=== PATIENT | female | born 1985 | race Caucasian/White ===

== ENCOUNTER → 2019-10-22 16:41 | Outpatient (CLI) | payer SELFPAY ==
[2019-10-27 08:23] LABS: HPV Reflexed? NOT INDICATED
== END ==
PROVIDERS: Visit Provider Obstetrics & Gynecology
DX: Z12.4 Encounter for screening for malignant neoplasm of cervix (principal)
CPT/HCPCS: 88175; G0145

== ENCOUNTER → 2020-08-27 13:37 | Outpatient (CLI) | payer SELFPAY ==
[2020-08-30 20:07] LABS: Chlamydia By Nucleic Acid AMP Negative (Negative)
[2020-08-30 20:46] LABS: Gonococcus By Nucleic Acid AMP Negative (Negative)
== END ==
PROVIDERS: Visit Provider Obstetrics & Gynecology
DX: Z11.3 Encounter for screening for infections with a predominantly sexual mode of transmission (principal)
CPT/HCPCS: 87491; 87591

== ENCOUNTER 2020-09-09 19:02 | Emergency (ER) | payer SELFPAY ==
[2020-09-09 19:03] VITALS: BP 140/81; PULSE 75; RESP 15; TEMP 36.6; O2SAT 100; BMI 24.7
--- NOTE | 2020-09-09 19:28 | RAD_ITS ---
EXAM: XR LEFT ANKLE COMPLETE, 3 OR MORE VIEWS : 1987 CLINICAL INDICATION: Injury/Pain TECHNIQUE: Frontal, lateral and oblique views of the left ankle. This report was created using [employer] report generation technology. COMPARISON: None. FINDINGS: BONES/JOINTS: Unremarkable. No acute fracture. No subluxation. Normal alignment. Preservation of the joint space. No sclerotic or destructive changes observed. SOFT TISSUES: Unremarkable. No soft tissue swelling or gas. No radiopaque foreign body. RAD/Ankle min 3 Views IMPRESSION: Negative left ankle x-rays. at 2003 Reported and signed by: Cody Myers MD Electronically Signed: Cody Myers MD at 20:02 EDT Tel , Service support ,
--- NOTE | 2020-09-09 21:08 | ED.VIS.LOWEX ---
HPI History of Present Illness HPI Narrative: Patient presents with left ankle injury that occurred tonight. Patient states she inverted her left ankle and fell. Patient denies any head injury or loss of consciousness. Patient complains of pain over the lateral aspect of the left ankle. Patient states the pain is aching. Patient states pain is worse with any movement or weightbearing. Patient states the pain is better with rest. Patient denies any radiation of the pain. Patient denies any paresthesias or weakness. Patient is approximately 10 weeks . Patient denies any bleeding or cramping. Patient denies any discharge. Patient denies any other symptoms. Chief Complaint: Lower Extremity Injury Informant: patient Occured/Mechanism Mechanism/Context: Yes fall Onset/Context/Timing Onset: Today Context: Sudden Onset Timing: Continuous Quality of Pain: Aching Location: Left ankle Worsened by: Movement, weightbearing Relieved by: Rest Associated Symptoms Associated Symptoms: Negative for Parasthesia, Weakness and Loss of Funtion PFSH PFSH no medical history Allergy/AdvReac Type Severity Reaction Status Date / Time No Known Allergies Allergy Verified 09/09/20 19:02 no surgical history Social History Smoking Status: Never smoker ROS ROS ED Constitutional Constitutional ED: Denies chills or fever(s) Eyes Eyes: Denies blurry vision or change in vision ENT ENT ED: Denies rhinorrhea or sore throat Cardiovascular Cardiovascular: Denies chest pain or palpitations Respiratory/Chest Respiratory/Chest: Denies cough or dyspnea Gastrointestinal Gastrointestinal: Denies nausea or vomiting Genitourinary Genitourinary ED: Denies dysuria or hematuria Musculoskeletal Musculoskeletal: Denies back pain or neck pain Integumentary Denies abscess or rash Neurologic Neurologic: Denies headache(s) or weakness Allergic/Immunologic Allergic/Immunologic ED: Denies mouth swelling or urticaria EXAM Physical Exam Const Vital Signs: 09/09/20 19:03 Temperature 98 F Temperature Source Temporal Pulse Rate 75 Respiratory Rate 15 Blood Pressure 140/81 H Blood Pressure Mean 100 Pulse Ox 100 Oxygen Delivery Method Room Air Positive well nourished and well developed General Appearance ED: well developed HEENT Reports moist mucous membranes Neck full ROM Extremity Extremity Narrative: There is tenderness and mild edema over the lateral aspect of the left ankle. There is some mild tenderness over the lateral malleolus. There is no ecchymosis. There is no deformity noted. There is no tenderness over the proximal fibula. There is no tenderness over the fifth metatarsal. Pedal pulses are equal bilaterally. Capillary refill was less than 2 seconds in all digits. Sensation was intact to light touch in all digits. Neuro oriented x3, CN's II-XII intact bilaterally, moves all extremities and no sensory deficits noted Sensorium / Orientation: alert Psych mental status grossly normal MDM MDM MDM Narrative Medical decision making narrative: X-rays of the left ankle were obtained. There are 3 views. On my interpretation, there is no acute fracture. There is no dislocation. There is no soft tissue swelling. Radiologist also interpreted the x-rays and agrees. Patient was given an Aircast. Patient was instructed to ice and elevate the left ankle. Patient was instructed to take Tylenol as needed for pain. Patient was instructed to follow-up with her primary care physician in 5 to 7 days. Patient understood and was agreeable with the plan. All questions were answered. Radiography Diagnostic Testing: Radiology Impression Ankle X-Ray 09/09/20 19:28 IMPRESSION: Negative left ankle x-rays. at 2003 Reported and signed by: Cody Myers MD Electronically Signed: Cody Myers MD at 20:02 EDT Tel , Service support , Discharge Plan Triage Chief Complaint: Lower Extremity Injury ED Provider: Deshawn Flores Dx/Rx/DC Orders Clinical Impression: Left ankle sprain Instructions: ED Ankle Sprain (Adult) Primary Care Provider: Arline Hudson Referrals: Arline Hudson MD [Primary Care Provider] - 5-7 Days Disposition Disposition: Home, Self Care Discharge Date/Time: 09/09/20 21:39
== END 2020-09-09 21:39 | disposition home or self-care (01) ==
PROVIDERS: Emergency Provider Emergency Medicine; PCP Family Medicine
DX: O9A.211 Injury, poisoning and certain other consequences of external causes complicating pregnancy, first trimester (principal); S93.402A Sprain of unspecified ligament of left ankle, initial encounter; W19.XXXA Unspecified fall, initial encounter; Z3A.10 10 weeks gestation of pregnancy
CPT/HCPCS: 73610; 99283

== ENCOUNTER → 2020-09-10 12:22 | Outpatient (CLI) | payer SELFPAY ==
[2020-09-09 19:03] VITALS: BMI 24.7
[2020-09-10 12:50] LABS: Absolute Lymphocyte Count 1.45 X10^3/uL (0.83-4.51); Absolute Neutrophil Count 6.6 X10^3/uL (2.0-7.7); Basophil# 0.03 X10^3/uL; Basophil% 0.3 % (0-1); Eosinophil# 0.03 X10^3/uL; Eosinophils% 0.3 % (0-5); Hematocrit 40.3 % (37-47); Hemoglobin 13.6 g/dL (12.0-15.0); Lymphocyte # 1.45 X10^3/ul (0.83-4.51); Lymphocyte % 16.4 % (19-41); Mean Corp Hgb Conc 33.7 g/dL (32-36); Mean Corpuscular Hgb 29.5 pg (27.0-32.0); Mean Corpuscular Volume 87.4 fL (81-99); Mean Platelet Vol. 10.3 fl (6.2-12.0); Monocyte# 0.69 X10^3/uL; Monocyte% 7.8 % (0-10); NRBC Flagged by Analyzer 0 % (0-5); Neutrophil % 74.9 % (47-70); Platelet Count 275 K/mm3 (150-450); RBC Distribution Width CV 12.3 % (11.6-14.6); RBC Distribution Width SD 39.6 fl (35.1-43.9); Red Blood Count 4.61 M/mm3 (4.2-5.4); White Blood Count 8.8 K/mm3 (4.4-11.0)
[2020-09-10 13:56] LABS: HIV - WCH Non-Reactive (Nonreactive); Hepatitis B Surface Antigen Non-Reactive (Nonreactive); Hepatitis C Antibody Non-Reactive (Nonreactive); Rubella IgG Reactive (Nonreactive); Syphilis Antibodies Non-reactive
== END ==
PROVIDERS: PCP Family Medicine; Visit Provider Obstetrics & Gynecology
DX: Z34.81 Encounter for supervision of other normal pregnancy, first trimester (principal)
CPT/HCPCS: 36415; 85025; 86703; 86762; 86780; 86803; 87086; 87340

== ENCOUNTER 2021-06-10 12:25 | Outpatient (CLI) | payer SELFPAY ==
[2021-06-10 13:17] LABS: Absolute Lymphocyte Count 1.46 X10^3/uL (0.83-4.51); Basophil# 0.04 X10^3/uL; Basophil% 0.5 % (0-1); Eosinophil# 0.07 X10^3/uL; Eosinophils% 0.9 % (0-5); Hematocrit 37.8 % (37-47); Hemoglobin 13.4 g/dL (12.0-15.0); Lymphocyte # 1.46 X10^3/ul (0.83-4.51); Lymphocyte % 17.8 % (19-41); Mean Corp Hgb Conc 35.4 g/dL (32-36); Mean Corpuscular Hgb 30.9 pg (27.0-32.0); Mean Corpuscular Volume 87.1 fL (81-99); Mean Platelet Vol. 10.7 fl (6.2-12.0); Monocyte# 0.64 X10^3/uL; Monocyte% 7.8 % (0-10); NRBC Flagged by Analyzer 0 % (0-5); Neutrophil # 5.97 X10^3/uL (2.7-7.7); Neutrophil % 72.6 % (47-70); POSITIVE COUNT YES; Platelet Count 249 K/mm3 (150-450); RBC Distribution Width CV 11.9 % (11.6-14.6); RBC Distribution Width SD 38.5 fl (35.1-43.9); Red Blood Count 4.34 M/mm3 (4.2-5.4); White Blood Count 8.2 K/mm3 (4.4-11.0)
[2021-06-10 14:16] LABS: HIV - WCH Non-Reactive (Nonreactive); Hepatitis B Surface Antigen Non-Reactive (Nonreactive); Hepatitis C Antibody Non-Reactive (Nonreactive); Rubella IgG Reactive (Nonreactive); Syphilis Antibodies Non-reactive
[2021-06-13 18:07] LABS: Chlamydia By Nucleic Acid AMP Negative (Negative)
[2021-06-13 21:19] LABS: Gonococcus By Nucleic Acid AMP Negative (Negative)
== END 2021-06-10 23:59 | disposition home or self-care (01) ==
LOC: WOBLAB 12:26
PROVIDERS: PCP Family Medicine; Visit Provider Obstetrics & Gynecology
DX: Z34.81 Encounter for supervision of other normal pregnancy, first trimester (principal)
CPT/HCPCS: 36415; 85025; 86703; 86762; 86780; 86803; 87086; 87340; 87491; 87591

== ENCOUNTER → 2021-11-01 | Outpatient (CLI) | payer SELFPAY ==
[2021-11-01 13:11] LABS: Absolute Neutrophil Count 5.6 X10^3/uL (2.0-7.7); Basophil# 0.03 X10^3/uL; Basophil% 0.4 % (0-1); Eosinophil# 0.06 X10^3/uL; Eosinophils% 0.8 % (0-5); Hematocrit 31.9 % (37-47); Hemoglobin 10.5 g/dL (12.0-15.0); Lymphocyte % 14.8 % (19-41); Mean Corp Hgb Conc 32.9 g/dL (32-36); Mean Corpuscular Hgb 30.2 pg (27.0-32.0); Mean Corpuscular Volume 91.7 fL (81-99); Mean Platelet Vol. 10.7 fl (6.2-12.0); Monocyte# 0.52 X10^3/uL; NRBC Flagged by Analyzer 0 % (0-5); Neutrophil # 5.64 X10^3/uL (2.7-7.7); Neutrophil % 75.8 % (47-70); Platelet Count 214 K/mm3 (150-450); RBC Distribution Width SD 46.8 fl (35.1-43.9); Red Blood Count 3.48 M/mm3 (4.2-5.4); White Blood Count 7.4 K/mm3 (4.4-11.0)
[2021-11-01 13:21] LABS: Glucose Challenge Gest 1H 50g 141 mg/dL (70-140)
== END | disposition home or self-care (01) ==
LOC: WOBLAB 09:42
PROVIDERS: PCP Family Medicine; Visit Provider Obstetrics & Gynecology
DX: Z34.83 Encounter for supervision of other normal pregnancy, third trimester (principal)
CPT/HCPCS: 36415; 82950; 85025

== ENCOUNTER → 2021-11-11 | Outpatient (CLI) | payer SELFPAY ==
[2021-11-11 10:14] LABS: Glucose GTT-Gestation. Fasting 91 mg/dL (<105)
[2021-11-11 11:39] LABS: Glucose GTT-Gestational 1 Hr 201 mg/dL (<190)
[2021-11-11 11:46] LABS: Glucose GTT-Gestational 2 Hr 135 mg/dL (<165)
[2021-11-11 13:00] LABS: Glucose GTT-Gestational 3 Hr 114 L (<145)
== END | disposition home or self-care (01) ==
PROVIDERS: PCP Family Medicine; Referring Provider Obstetrics & Gynecology; Visit Provider Obstetrics & Gynecology
DX: O24.912 Unspecified diabetes mellitus in pregnancy, second trimester (principal); Z3A.00 Weeks of gestation of pregnancy not specified
CPT/HCPCS: 36415; 82951; 82952

== ENCOUNTER → 2021-12-02 | Outpatient (CLI) | payer SELFPAY ==
[2021-12-02 14:39] LABS: Absolute Lymphocyte Count 1.29 X10^3/uL (0.83-4.51); Absolute Neutrophil Count 6.1 X10^3/uL (2.0-7.7); Basophil# 0.02 X10^3/uL; Basophil% 0.2 % (0-1); Eosinophil# 0.04 X10^3/uL; Eosinophils% 0.5 % (0-5); Hematocrit 30.2 % (37-47); Hemoglobin 10.1 g/dL (12.0-15.0); Lymphocyte # 1.29 X10^3/ul (0.83-4.51); Lymphocyte % 15.7 % (19-41); Mean Corp Hgb Conc 33.4 g/dL (32-36); Mean Corpuscular Hgb 30.3 pg (27.0-32.0); Mean Corpuscular Volume 90.7 fL (81-99); Mean Platelet Vol. 10.7 fl (6.2-12.0); Monocyte# 0.64 X10^3/uL; Monocyte% 7.8 % (0-10); NRBC Flagged by Analyzer 0 % (0-5); Neutrophil # 6.14 X10^3/uL (2.7-7.7); Neutrophil % 74.8 % (47-70); Platelet Count 210 K/mm3 (150-450); RBC Distribution Width CV 13.5 % (11.6-14.6); RBC Distribution Width SD 44.3 fl (35.1-43.9); Red Blood Count 3.33 M/mm3 (4.2-5.4); White Blood Count 8.2 K/mm3 (4.4-11.0)
[2021-12-02 15:05] LABS: ALB/GLOB Ratio 0.6 RATIO (0.9-2.4); AST(SGOT) 12 U/L (15-37); Alanine Aminotransfer ALT/SGPT 13 U/L (13-56); Albumin, Serum 2.6 g/dL (3.2-5.0); Alkaline Phosphatase 97 U/L (45-117); Anion Gap 10 (5-15); BUN 10 mg/dL (7-18); BUN/Creat Ratio 12.5 RATIO (10-20); Calcium,Total 9.1 mg/dL (8.5-10.1); Chloride 105 mmol/L (98-107); EST Glomerular Filtration Rate 88 mL/min (>60); Est Glom Filt Rate - Afr Amer 106 mL/min (>60); Globulin 4.1 g/dL (2.2-4.2); Glucose 95 mg/dL (74-106); LDH 173 U/L (84-246); Potassium 3.6 mmol/L (3.5-5.1); Protein, Total 6.7 g/dL (6.4-8.2); Sodium Level 139 mmol/L (136-145)
[2021-12-02 15:06] LABS: Protein, Urine (Random) < 6.0 mg/dL (<11.9)
== END | disposition home or self-care (01) ==
LOC: WOBLAB 14:01
PROVIDERS: PCP Family Medicine; Visit Provider Obstetrics & Gynecology
DX: Z34.83 Encounter for supervision of other normal pregnancy, third trimester (principal)
CPT/HCPCS: 36415; 80053; 82570; 83615; 84156; 85025; 87086; 87088

== ENCOUNTER → 2021-12-19 | Outpatient (CLI) | payer SELFPAY ==
[2021-12-19 11:34] LABS: Absolute Lymphocyte Count 1.12 X10^3/uL (0.83-4.51); Absolute Neutrophil Count 5.1 X10^3/uL (2.0-7.7); Basophil# 0.03 X10^3/uL; Basophil% 0.4 % (0-1); Eosinophil# 0.03 X10^3/uL; Eosinophils% 0.4 % (0-5); Hematocrit 30.6 % (37-47); Lymphocyte # 1.12 X10^3/ul (0.83-4.51); Lymphocyte % 16.3 % (19-41); Mean Corp Hgb Conc 32.7 g/dL (32-36); Mean Corpuscular Hgb 29.6 pg (27.0-32.0); Mean Corpuscular Volume 90.5 fL (81-99); Monocyte# 0.55 X10^3/uL; NRBC Flagged by Analyzer 0 % (0-5); Platelet Count 181 K/mm3 (150-450); RBC Distribution Width CV 13.3 % (11.6-14.6); RBC Distribution Width SD 43.5 fl (35.1-43.9); Red Blood Count 3.38 M/mm3 (4.2-5.4); White Blood Count 6.9 K/mm3 (4.4-11.0)
[2021-12-19 11:42] LABS: Protein, Urine (Random) 14.3 mg/dL (<11.9); Protein:Creat Ratio 207 mg/g CRE (0-200)
[2021-12-19 11:46] LABS: ALB/GLOB Ratio 0.6 RATIO (0.9-2.4); AST(SGOT) 17 U/L (15-37); Alanine Aminotransfer ALT/SGPT 14 U/L (13-56); Albumin, Serum 2.5 g/dL (3.2-5.0); Alkaline Phosphatase 111 U/L (45-117); Anion Gap 9 (5-15); BUN 8 mg/dL (7-18); BUN/Creat Ratio 10.1 RATIO (10-20); Calcium,Total 8.9 mg/dL (8.5-10.1); Chloride 105 mmol/L (98-107); EST Glomerular Filtration Rate 88 mL/min (>60); Est Glom Filt Rate - Afr Amer 106 mL/min (>60); Globulin 4.1 g/dL (2.2-4.2); Glucose 106 mg/dL (74-106); LDH 181 U/L (84-246); Potassium 3.5 mmol/L (3.5-5.1); Protein, Total 6.6 g/dL (6.4-8.2); Sodium Level 138 mmol/L (136-145)
== END | disposition home or self-care (01) ==
LOC: WOBLAB 10:38
PROVIDERS: PCP Family Medicine; Visit Provider Student in an Organized Health Care Education/Training Program
DX: O13.3 Gestational [pregnancy-induced] hypertension without significant proteinuria, third trimester (principal); Z3A.00 Weeks of gestation of pregnancy not specified
CPT/HCPCS: 36415; 80053; 82570; 83615; 84156; 85025; 87086

== ENCOUNTER 2021-12-22 16:40 | Inpatient (IN) | payer SELFPAY ==
[2021-12-22] VITALS (55 sets, daily range): BP systolic 82–174; BP diastolic 35–103; PULSE 74–99; RESP 16–20; TEMP 35.9–37.5; O2SAT 94–99; BMI 28.1
[2021-12-22] MEDS: Lactated Ringers 1,000 ML 50 ML IV (16:45)
[2021-12-22] MEDS: Magnesium Sulfate 4gm/100mL 4 GM/100 ML IV.SOLN. IV (17:12)
[2021-12-22 17:20] LABS: Absolute Lymphocyte Count 1.63 X10^3/uL (0.83-4.51); Basophil# 0.04 X10^3/uL; Basophil% 0.4 % (0-1); Eosinophil# 0.02 X10^3/uL; Eosinophils% 0.2 % (0-5); Hematocrit 30.9 % (37-47); Hemoglobin 10.5 g/dL (12.0-15.0); Lymphocyte # 1.63 X10^3/ul (0.83-4.51); Lymphocyte % 17.2 % (19-41); Mean Corpuscular Hgb 30.4 pg (27.0-32.0); Mean Corpuscular Volume 89.6 fL (81-99); Mean Platelet Vol. 10.9 fl (6.2-12.0); Monocyte% 7.4 % (0-10); NRBC Flagged by Analyzer 0 % (0-5); Neutrophil # 6.99 X10^3/uL (2.7-7.7); Neutrophil % 74.1 % (47-70); Platelet Count 191 K/mm3 (150-450); RBC Distribution Width CV 13.4 % (11.6-14.6); RBC Distribution Width SD 43.7 fl (35.1-43.9); Red Blood Count 3.45 M/mm3 (4.2-5.4); White Blood Count 9.5 K/mm3 (4.4-11.0)
[2021-12-22] MEDS: Betamethasone/Betamethasone 30 MG/5 ML Vial 12 MG IM (17:20)
[2021-12-22] MEDS: Magnesium Sulfate 4gm/100mL 2 GM/50 ML IV.SOLN. IV (17:29)
[2021-12-22 17:40] LABS: ALB/GLOB Ratio 0.6 RATIO (0.9-2.4); AST(SGOT) 18 U/L (15-37); Alanine Aminotransfer ALT/SGPT 15 U/L (13-56); Albumin, Serum 2.7 g/dL (3.2-5.0); Alkaline Phosphatase 126 U/L (45-117); Anion Gap 11 (5-15); BUN 8 mg/dL (7-18); BUN/Creat Ratio 12.4 RATIO (10-20); Calcium,Total 9.1 mg/dL (8.5-10.1); Chloride 105 mmol/L (98-107); Creatinine, Serum 0.65 mg/dL (0.55-1.02); EST Glomerular Filtration Rate 111 mL/min (>60); Est Glom Filt Rate - Afr Amer 135 mL/min (>60); Estimated Creatinine Clearance 100.88 ml/min; Globulin 4.6 g/dL (2.2-4.2); Glucose 74 mg/dL (74-106); LDH 193 U/L (84-246); Potassium 3.7 mmol/L (3.5-5.1); Protein, Total 7.3 g/dL (6.4-8.2); Sodium Level 137 mmol/L (136-145)
[2021-12-22] MEDS: Magnesium Sulfate 20 GM/500 ML BAG IV (17:45)
--- NOTE | 2021-12-22 17:47 | PCM.HP.BLA ---
History and Physical Date of Admission: 12/22/21 Chief complaint: Elevated blood pressures History of present illness: 36-year-old G2, P0 at 35 weeks and 6 days with IGOR 01/20/2022 arrives with elevated at home blood pressures. Patient with headache, denies visual changes. Denies chest pain, shortness of breath, right upper quadrant pain. Patient states good movement. is complicated by GDM A1 Obstetric history: G1: SAB G2: Current Past medical history: GDM A1 Medications: None Past surgical history: [place] teeth extraction tonsils and adenoids Allergies: No known drug allergies Social history: Denies smoking, alcohol use, drug use Family history: Denies history DVT or PE Review of systems: Besides above pertinent positives a full review of systems was performed and found to be negative Physical exam: Vital signs: Blood pressure 141/78 pulse 95 General: Normal-appearing no acute distress HEENT: Normocephalic/atraumatic no cervical of adenopathy Cardiac/respiratory: No successor muscles, nonlabored breathing Abdomen: Soft, nontender, gravid. Negative right upper quadrant pain Extremities: No peripheral edema normal peripheral pulses. DTRs +2 bilaterally, negative clonus bilaterally Psych: Normal affect normal demeanor nonpressured speech Labs: White blood cell count 9.5 hemoglobin 10.5 hematocrit 30.9% platelets 191. Creatinine 0.65. AST 18 ALT 15 LDH 193. Total bilirubin 0.4 Bedside ultrasound: Breech Assessment plan: 36-year-old G2, P0 at 35 weeks and 6 days now diagnosed with preeclampsia with severe features based on severe range blood pressures. Overall blood pressures nonsevere range prior to IV administration of labetalol. We will continue to monitor blood pressures and treat appropriately. Magnesium 6 g bolus at 2 g an hour. For Celestone now, GDM A1 well-controlled with diet. Educated patient on severe preeclampsia and its risks including but not limited to stroke, seizure, CO. Educated patient on delivery needed. Breech patient elects for primary section. Discussed with anesthesia, based on patient eating anesthesia recommends 1999 for timing. Assuming patient and cervix remain stable we will plan for 1999. Preoperatively for 2 g Ancef and 500 mg of azithromycin
[2021-12-22 17:50] LABS: Bedside Glucose 77 mg/dL (74-106)
[2021-12-22] MEDS: Labetalol (Prefilled) 20 MG/4 ML IV (18:39)
[2021-12-22] MEDS: Acetaminophen 500 MG Tablet 1000 MG PO (19:13)
[2021-12-22] MEDS: Sodium Citrate/Citric Acid 30 ML UDC PO (19:34)
[2021-12-22] MEDS: Cefazolin 2 GM in 0.9% Normal Saline 100 ML IV (20:04)
[2021-12-22 20:39] LABS: Group B Strep DNA By PCR Negative (Negative); Internal Control PASS; Probe Check PASS; Specimen Processing Control PASS
--- NOTE | 2021-12-22 20:55 | EX.PCM.OBRPT ---
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 Normal uterus, tubes, and ovaries Consent: Patient arrived and diagnosed with preeclampsia with severe features based on severe range blood pressures also with breech elected for primary section Via Pfannenstiel incision. Patient understands the risk of the procedure include but are not limited to visceral or vascular injury, prolonged hospitalization, blood loss need for transfusion, reoperation. Patient stated understanding and wished to proceed. All questions were answered and consent was signed. Procedure: Patient was brought back to the OR where spinal anesthesia was found to be adequate. 2 g of Ancef and 500 mg of azithromycin were given for infection prophylaxis. Patient was prepared and draped in a supine position with leftward tilt. A Pfannenstiel incision was made at the skin with a scalpel. The fascia was excised and extended laterally with a scalpel. Rectus muscle was dissected the midline down to the level of the pubic symphysis. Preperitoneal fatty tissue was noted peritoneum was entered bluntly. Peritoneum was extended superiorly and inferiorly with good visualization of the bladder. Bladder blade was inserted and vesicouterine peritoneum was identified. Low transverse hysterotomy was made. Hand was placed into the incision and baby was delivered in standard breech fashion. Cord was clamped and cut, baby is handed off to nursing. Placenta was delivered via cord traction and fundal massage. IV oxytocin was initiated in order to facilitate uterine contractions. Uterus was exteriorized and wiped out with dry laparotomy sponge in order to remove remaining placental membranes. Uterus was closed in continuous running fashion. [id number] sutures and Garcia was used for hemostasis. Good hemostasis was noted. Uterus was placed back into the abdominal cavity, incision was reinspected, and good hemostasis was noted. Fascia was closed in a continuous running fashion. Subcutaneous irrigation was performed. Good hemostasis was noted. Skin was closed in a subcuticular fashion. All counts were correct x2. Patient tolerated procedure well and was brought to recovery in a stable condition.
[2021-12-22] MEDS: Oxytocin 30 units/NS 500 ml 30 UNITS/500 ML IV.SOLN 167 UNITS IV (21:30)
[2021-12-22] MEDS: Ketorolac 30 MG/ML Syringe IV (22:29)
[2021-12-22] MEDS: 0.9% Saline Lock 10 ML Syringe IV (22:30)
[2021-12-23] VITALS (21 sets, daily range): BP systolic 93–115; BP diastolic 48–68; PULSE 71–87; RESP 14–18; TEMP 36.2–37; O2SAT 94–99
[2021-12-23] MEDS: DiphenhydrAMINE 25 MG Capsule PO (00:26)
[2021-12-23 00:52] LABS: Magnesium 5.7 mg/dL (1.6-2.6)
[2021-12-23 01:00] LABS: Bedside Glucose 191 mg/dL (74-106)
[2021-12-23] MEDS: Acetaminophen 500 MG Tablet 1000 MG PO ×4 (01:03→18:48)
[2021-12-23] MEDS: Magnesium Sulfate 20 GM/500 ML BAG IV ×2 (04:01→14:30)
[2021-12-23] MEDS: Ketorolac 30 MG/ML Syringe IV ×3 (04:36→16:08)
[2021-12-23 05:27] LABS: Hematocrit 22.2 % (37-47); Hemoglobin 7.3 g/dL (12.0-15.0); Mean Corp Hgb Conc 32.9 g/dL (32-36); Mean Corpuscular Hgb 29.4 pg (27.0-32.0); Mean Corpuscular Volume 89.5 fL (81-99); Mean Platelet Vol. 10.5 fl (6.2-12.0); Platelet Count 174 K/mm3 (150-450); RBC Distribution Width CV 13.3 % (11.6-14.6); RBC Distribution Width SD 43.3 fl (35.1-43.9); Red Blood Count 2.48 M/mm3 (4.2-5.4)
[2021-12-23 05:40] LABS: Magnesium 6.4 mg/dL (1.6-2.6)
--- NOTE | 2021-12-23 06:03 | PCM.PN.OB ---
Subjective Subjective No overnight complaints. Denies headache, visual changes, chest pain, shortness of breath, nausea vomit, right upper quadrant pain. Objective Data Objective Data Vital Signs: Vital Signs Temp Pulse Resp BP Pulse Ox O2 Del Method 98.6 F 86 16 97/52 L 96 Room Air 12/23/21 05:00 12/23/21 05:00 12/23/21 05:00 12/23/21 05:00 12/23/21 05:00 12/23/21 05:00 Oxygen Delivery Method Room Air Weight: 158 lb 15.253 oz Body Mass Index (BMI) 28.1 Intake & Output: Intake and Output for Last 24 Hours 12/21/21 12/22/21 12/23/21 23:59 23:59 23:59 Intake Total 1550 / 1550 600 / 600 Output Total 1595 / 1595 441 / 441 Balance -45 / -45 159 / 159 Lab / Micro Data Result Diagrams: 12/23/21 05:11 12/22/21 16:45 Labs: Laboratory Results - last 24 hr 12/22/21 16:45: WBC 9.5, RBC 3.45 L, Hgb 10.5 L, Hct 30.9 L, MCV 89.6, MCH 30.4, MCHC 34.0, RDW Std Deviation 43.7, RDW Coeff of Odilia 13.4, Plt Count 191, MPV 10.9, Immature Gran % (Auto) 0.700, Neut % (Auto) 74.1 H, Lymph % (Auto) 17.2 L, [place] % (Auto) 7.4, Eos % (Auto) 0.2, Baso % (Auto) 0.4, Absolute Neuts (auto) 7.0, Absolute Lymphs (auto) 1.63, Nucleated RBC % 0 12/22/21 16:45: Blood Type O POSITIVE, Antibody Screen NEGATIVE 12/22/21 16:45: Sodium 137, Potassium 3.7, Chloride 105, Carbon Dioxide 21.0, Anion Gap 11, BUN 8, Creatinine 0.65, Estim Creat Clear Calc 100.88, Est GFR (MDRD) Af Amer 135, Est GFR (MDRD) Non-Af 111, BUN/Creatinine Ratio 12.4, Glucose 74, Calcium 9.1, Total Bilirubin 0.40, AST 18, ALT 15, Alkaline Phosphatase 126 H, Lactate Dehydrogenase 193, Total Protein 7.3, Albumin 2.7 L, Globulin 4.6 H, Albumin/Globulin Ratio 0.6 L 12/22/21 17:24: POC Glucose 77 12/22/21 18:50: Group B Strep DNA Negative, Specimen Comment Not Reportable 12/22/21 : Magnesium 5.7 H* 12/23/21 00:40: POC Glucose 191 H 12/23/21 05:11: WBC 13.0 H, RBC 2.48 L, Hgb 7.3 L, Hct 22.2 L, MCV 89.5, MCH 29.4, MCHC 32.9, RDW Std Deviation 43.3, RDW Coeff of Odilia 13.3, Plt Count 174, MPV 10.5 12/23/21 05:11: Magnesium 6.4 H* Physical Exam Const alert, oriented x3, no apparent distress, average body habitus, healthy appearing and well nourished HEENT normocephalic and moist oral mucous membranes Eyes PERRL Neck full ROM Resp normal respiratory effort, no retractions and no use of accessory muscles GI GI Narrative: Soft, nontender, uterus firm and below umbilicus. Bandage replaced, incision clean dry and intact upon inspection Extremity normal to inspection, full ROM and no clubbing, cyanosis or edema Neuro moves all extremities, no focal motor deficits and deep tendon reflexes 2+ bilaterally Motor Exam: clonus absent Psych mental status grossly normal, affect normal and speech normal Assessment & Plan (1) delivery delivered: PLAN: Postop day 1 status post primary section for breech. Breast-feeding. Preeclampsia with severe features currently on magnesium, last dose labetalol 20 mg 12/22 around 1800. Currently on no medications blood pressure well controlled. We will continue magnesium for 24 hours. GDM A1, elevated blood sugars after Celestone previously well controlled on diet. We will continue to monitor and treat as needed. Acute on chronic anemia secondary to acute blood loss anemia, overall patient asymptomatic and vital signs stable. For Dereck now
[2021-12-23 06:26] LABS: Bedside Glucose 133 mg/dL (74-106)
[2021-12-23 08:20] LABS: Bedside Glucose 217 mg/dL (74-106)
[2021-12-23 08:20] LABS: Bedside Glucose 218 mg/dL (74-106)
--- NOTE | 2021-12-23 08:43 | NURSING ---
0845- harris cath removed
[2021-12-23] MEDS: Enoxaparin 40 MG/0.4 ML Syringe SC (10:28)
[2021-12-23] MEDS: Senna/Docusate Sodium 1 Tablet PO (10:35)
[2021-12-23] MEDS: Prenatal Vits Tablet 1 TABLET PO (10:35)
[2021-12-23] MEDS: 0.9% Saline Lock 10 ML Syringe IV ×3 (10:47→20:43)
[2021-12-23 12:20] LABS: Bedside Glucose 159 mg/dL (74-106)
[2021-12-23 13:13] LABS: Magnesium 7.3 mg/dL (1.6-2.6)
[2021-12-23 18:18] LABS: Absolute Lymphocyte Count 1.47 X10^3/uL (0.83-4.51); Absolute Neutrophil Count 12.5 X10^3/uL (2.0-7.7); Basophil# 0.03 X10^3/uL; Basophil% 0.2 % (0-1); Eosinophil# 0.01 X10^3/uL; Eosinophils% 0.1 % (0-5); Hemoglobin 7.7 g/dL (12.0-15.0); Lymphocyte # 1.47 X10^3/ul (0.83-4.51); Lymphocyte % 9.6 % (19-41); Mean Corp Hgb Conc 33.5 g/dL (32-36); Mean Corpuscular Hgb 30.4 pg (27.0-32.0); Mean Corpuscular Volume 90.9 fL (81-99); Mean Platelet Vol. 10.9 fl (6.2-12.0); Monocyte# 1.11 X10^3/uL; Monocyte% 7.3 % (0-10); NRBC Flagged by Analyzer 0 % (0-5); Neutrophil # 12.48 X10^3/uL (2.7-7.7); Neutrophil % 81.8 % (47-70); Platelet Count 208 K/mm3 (150-450); RBC Distribution Width CV 13.5 % (11.6-14.6); RBC Distribution Width SD 44.4 fl (35.1-43.9); Red Blood Count 2.53 M/mm3 (4.2-5.4); White Blood Count 15.3 K/mm3 (4.4-11.0)
--- NOTE | 2021-12-23 18:29 | NURSING ---
1720-Dr Komal Boss in and assessed dressing on abdomen. Dressing changed at this time. Order obtained for CBC and mag level at 1800
[2021-12-23 19:11] LABS: Bedside Glucose 115 mg/dL (74-106)
[2021-12-23] MEDS: Ibuprofen 600 MG Tablet PO (22:33)
--- NOTE | 2021-12-23 22:42 | NURSING ---
Magnesium assessment completed on worklist. Incorrect reason for discontinuing. Not a physician verbal order but policy order requiring e-sign.
[2021-12-24 00:26] VITALS: BP 112/61; PULSE 76; RESP 18; TEMP 37.1; O2SAT 100
[2021-12-24] MEDS: Acetaminophen 500 MG Tablet 1000 MG PO ×4 (01:03→20:41)
[2021-12-24 02:46] VITALS: BP 117/66; PULSE 89; RESP 18; TEMP 37.3; O2SAT 98
[2021-12-24] MEDS: oxyCODONE 5 MG Tablet PO ×2 (03:04→12:35)
[2021-12-24] MEDS: Ibuprofen 600 MG Tablet PO ×4 (04:39→22:42)
[2021-12-24 06:42] LABS: Absolute Neutrophil Count 11.8 X10^3/uL (2.0-7.7); Basophil# 0.04 X10^3/uL; Basophil% 0.3 % (0-1); Eosinophil# 0.01 X10^3/uL; Eosinophils% 0.1 % (0-5); Hematocrit 21.7 % (37-47); Hemoglobin 7.1 g/dL (12.0-15.0); Lymphocyte % 7.1 % (19-41); Mean Corp Hgb Conc 32.7 g/dL (32-36); Mean Corpuscular Hgb 29.6 pg (27.0-32.0); Mean Corpuscular Volume 90.4 fL (81-99); Mean Platelet Vol. 10.3 fl (6.2-12.0); Monocyte# 1.02 X10^3/uL; Monocyte% 7.3 % (0-10); NRBC Flagged by Analyzer 0 % (0-5); Neutrophil # 11.78 X10^3/uL (2.7-7.7); Neutrophil % 83.7 % (47-70); Platelet Count 204 K/mm3 (150-450); RBC Distribution Width CV 13.7 % (11.6-14.6); RBC Distribution Width SD 43.9 fl (35.1-43.9); White Blood Count 14.1 K/mm3 (4.4-11.0)
[2021-12-24 07:16] LABS: ALB/GLOB Ratio 0.6 RATIO (0.9-2.4); AST(SGOT) 30 U/L (15-37); Alanine Aminotransfer ALT/SGPT 12 U/L (13-56); Albumin, Serum 2.2 g/dL (3.2-5.0); Alkaline Phosphatase 91 U/L (45-117); Anion Gap 8 (5-15); BUN 9 mg/dL (7-18); BUN/Creat Ratio 11.7 RATIO (10-20); Calcium,Total 7.2 mg/dL (8.5-10.1); Chloride 106 mmol/L (98-107); Creatinine, Serum 0.77 mg/dL (0.55-1.02); EST Glomerular Filtration Rate 91 mL/min (>60); Est Glom Filt Rate - Afr Amer 110 mL/min (>60); Estimated Creatinine Clearance 85.16 ml/min; Globulin 3.6 g/dL (2.2-4.2); Glucose 94 mg/dL (74-106); Potassium 3.9 mmol/L (3.5-5.1); Protein, Total 5.8 g/dL (6.4-8.2); Sodium Level 137 mmol/L (136-145)
[2021-12-24 09:17] VITALS: BP 116/77; PULSE 88; RESP 14; TEMP 36.6; O2SAT 94
[2021-12-24 09:36] LABS: Bedside Glucose 93 mg/dL (74-106)
--- NOTE | 2021-12-24 09:48 | PCM.PN.OB ---
Subjective Subjective Postop day 2. Patient is sore but pain is controlled with medications. Denies lightheadedness or dizziness. Able to ambulate without assistance. Objective Data Objective Data Vital Signs: Vital Signs Temp Pulse Resp BP Pulse Ox O2 Del Method 97.9 F 88 14 116/77 94 Room Air 12/24/21 09:17 12/24/21 09:17 12/24/21 09:17 12/24/21 09:17 12/24/21 09:17 12/24/21 09:17 Oxygen Delivery Method Room Air Weight: 72.1 kg Body Mass Index (BMI) 28.1 Intake & Output: Intake and Output for Last 24 Hours 12/22/21 12/23/21 12/24/21 23:59 23:59 23:59 Intake Total 1550 / 1550 2740 / 2740 Output Total 1595 / 1595 2921 / 2921 Balance -45 / -45 -181 / -181 Lab / Micro Data Attestation: I reviewed the patient's lab results. Result Diagrams: 12/24/21 06:30 12/24/21 06:30 Labs: Laboratory Results - last 24 hr 12/23/21 11:55: POC Glucose 159 H 12/23/21 12:00: Magnesium 7.3 H* 12/23/21 18:00: Magnesium 7.0 H* 12/23/21 18:00: WBC 15.3 H, RBC 2.53 L, Hgb 7.7 L, Hct 23.0 L, MCV 90.9, MCH 30.4, MCHC 33.5, RDW Std Deviation 44.4 H, RDW Coeff of Odilia 13.5, Plt Count 208, MPV 10.9, Immature Gran % (Auto) 1.000 H, Neut % (Auto) 81.8 H, Lymph % (Auto) 9.6 L, [place] % (Auto) 7.3, Eos % (Auto) 0.1, Baso % (Auto) 0.2, Absolute Neuts (auto) 12.5 H, Absolute Lymphs (auto) 1.47, Nucleated RBC % 0 12/23/21 18:51: POC Glucose 115 H 12/24/21 06:18: POC Glucose 93 12/24/21 06:30: Sodium 137, Potassium 3.9, Chloride 106, Carbon Dioxide 23.0, Anion Gap 8, BUN 9, Creatinine 0.77, Estim Creat Clear Calc 85.16, Est GFR (MDRD) Af Amer 110, Est GFR (MDRD) Non-Af 91, BUN/Creatinine Ratio 11.7, Glucose 94, Calcium 7.2 L, Total Bilirubin 0.10 L, AST 30, ALT 12 L, Alkaline Phosphatase 91, Total Protein 5.8 L, Albumin 2.2 L, Globulin 3.6, Albumin/Globulin Ratio 0.6 L 12/24/21 06:30: WBC 14.1 H, RBC 2.40 L, Hgb 7.1 L, Hct 21.7 L, MCV 90.4, MCH 29.6, MCHC 32.7, RDW Std Deviation 43.9, RDW Coeff of Odilia 13.7, Plt Count 204, MPV 10.3, Immature Gran % (Auto) 1.500 H, Neut % (Auto) 83.7 H, Lymph % (Auto) 7.1 L, [place] % (Auto) 7.3, Eos % (Auto) 0.1, Baso % (Auto) 0.3, Absolute Neuts (auto) 11.8 H, Absolute Lymphs (auto) 1.00, Nucleated RBC % 0 Physical Exam Const alert, oriented x3 and no apparent distress HEENT normocephalic Head and Scalp: atraumatic Neck full ROM Resp normal respiratory effort Cardio regular rate GI soft to palpation, non-tender, non-distended and no masses GI Narrative: Uterus 2 cm below umbilicus. Dressing removed. Some blood on dressing. Slight increase in ecchymosis compared to yesterday afternoon. No palpable hematoma in the subcutaneous tissue. 2 areas of skin edge that were everted and oozing. No oozing from any other portion of the incision. No increase in bleeding with fundal check or with palpation around the incision. Incision cleaned. Silver nitrate applied at 2 locations of skin eversion, no oozing after this was applied. Steri-Strips placed longitudinally. Pressure dressing placed. Back/Spine normal ROM Extremity normal to inspection Extremity Narrative: Minimal pedal edema Neuro no focal motor deficits and no sensory deficits noted Psych mental status grossly normal and affect normal Assessment & Plan (1) Severe pre-eclampsia: PLAN: Postop day 2 status post primary section for breech position. Complicated by severe preeclampsia, gestational diabetes, postoperative anemia, incisional bleeding. ?Severe preeclampsia: Patient received 1 dose IV labetalol. She is status post 24 hours of magnesium sulfate. Blood pressures well controlled. Patient is asymptomatic. ?Gestational diabetes: Patient was diet controlled during . She did receive 1 dose of Celestone after which glucose was elevated. Appeared to be decreasing at this time. Continue to monitor. Will need 2-hour glucose tolerance test at 6 to 12 weeks . ?Acute blood loss anemia secondary to surgery. Postoperatively hemoglobin was 7.3. Yesterday evening postop day 1 was 7.7. Today postop day 2 hemoglobin 7.1. Patient did receive one-time dose 200 mg IV Venofer. Hemoglobin is stable. Patient is asymptomatic without dizziness, shortness of breath, lightheadedness. Vitals are stable. Discussed anemia at length with patient. ?Incisional bleeding: Appears to be at the dermal skin edge versus subcutaneous hematoma. No hematoma palpated on exam. Patient does have some ecchymosis around the incision. Does not extend superiorly or down towards patient's mons. Bleeding mostly appears to have been coming from the 2 areas of everted skin edge. Silver nitrate was placed along these today with hemostasis noted at time of exam. Pressure dressing replaced. We will continue to closely monitor. No evidence of alternate etiologies of bleeding. During section rectus muscles were not dissected off of fascia, unlikely to have rectus sheath hematoma, unlikely pelvic or uterine etiology. Unlikely these etiologies based on patient's stability clinically as well as stable hemoglobin. Again appears to be from the skin edge, possible hematoma in the subcutaneous tissue. Patient experiencing normal postoperative discomfort which is managed and controlled with Motrin, Tylenol, oxycodone. We will continue to monitor closely. (2) Gestational diabetes: (3) delivery delivered: (4) Acute postoperative pain:
[2021-12-24] MEDS: Prenatal Vits Tablet 1 TABLET PO (10:54)
[2021-12-24] MEDS: Enoxaparin 40 MG/0.4 ML Syringe SC (10:55)
[2021-12-24 14:21] VITALS: BP 134/75; PULSE 91; RESP 16; TEMP 36.8; O2SAT 98
[2021-12-24 19:45] VITALS: BP 134/84; PULSE 98; RESP 16; TEMP 36.8; O2SAT 97
[2021-12-25] MEDS: Acetaminophen 500 MG Tablet 1000 MG PO ×2 (01:58→08:26)
[2021-12-25 02:07] VITALS: BP 125/84; PULSE 82; RESP 16; TEMP 36.5
[2021-12-25] MEDS: Ibuprofen 600 MG Tablet PO ×2 (05:08→11:12)
--- NOTE | 2021-12-25 05:40 | PN.OBGYN_ITS ---
Subjective Subjective Feeling well this morning. Lochia minimal. Working on . No STERN, visual disturbances, RUQ pain. Objective Data Objective Data Vital Signs: Vital Signs Temp Pulse Resp BP Pulse Ox O2 Del Method 97.7 F L 82 16 125/84 H 97 Room Air 12/25/21 02:07 12/25/21 02:07 12/25/21 02:07 12/25/21 02:07 12/24/21 19:45 12/24/21 19:45 Oxygen Delivery Method Room Air Weight: 72.1 kg Body Mass Index (BMI) 28.1 Intake & Output: Intake and Output for Last 24 Hours 12/23/21 12/24/21 12/25/21 23:59 23:59 23:59 Intake Total 2740 / 2740 Output Total 2921 / 2921 Balance -181 / -181 Lab / Micro Data Attestation: I reviewed the patient's lab results. Result Diagrams: 12/24/21 06:30 12/24/21 06:30 Labs: Laboratory Results - last 24 hr 12/24/21 06:18: POC Glucose 93 12/24/21 06:30: Sodium 137, Potassium 3.9, Chloride 106, Carbon Dioxide 23.0, Anion Gap 8, BUN 9, Creatinine 0.77, Estim Creat Clear Calc 85.16, Est GFR (MDRD) Af Amer 110, Est GFR (MDRD) Non-Af 91, BUN/Creatinine Ratio 11.7, Glucose 94, Calcium 7.2 L, Total Bilirubin 0.10 L, AST 30, ALT 12 L, Alkaline Phosphatase 91, Total Protein 5.8 L, Albumin 2.2 L, Globulin 3.6, Album in/Globulin Ratio 0.6 L 12/24/21 06:30: WBC 14.1 H, RBC 2.40 L, Hgb 7.1 L, Hct 21.7 L, MCV 90.4, MCH 29.6, MCHC 32.7, RDW Std Deviation 43.9, RDW Coeff of Odilia 13.7, Plt Count 204, MPV 10.3, Immature Gran % (Auto) 1.500 H, Neut % (Auto) 83.7 H, Lymph % (Auto) 7.1 L, [place] % (Auto) 7.3, Eos % (Auto) 0.1, Baso % (Auto) 0.3, Absolute Neuts (auto) 11.8 H, Absolute Lymphs (auto) 1.00, Nucleated RBC % 0 Physical Exam Const alert, oriented x3 and no apparent distress HEENT normocephalic Head and Scalp: atraumatic Neck full ROM Resp normal respiratory effort Cardio regular rate GI normal to inspection, nondistended, normoactive bowel sounds GI Narrative: Uterus 2 cm below umbilicus, dressing clean and dry. Pressure dressing removed. Incision clean and dry. Ecchymosis unchanged. No oozing. Scant dry blood on telfa. Back/Spine normal ROM Extremity normal to inspection Extremity Narrative: Minimal pedal edema Neuro no focal motor deficits and no sensory deficits noted Psych mental status grossly normal and affect normal Assessment & Plan (1) Gestational diabetes: (2) Severe pre-eclampsia: PLAN: Postop day 2 status post primary section for breech position. Complicated by severe preeclampsia, gestational diabetes, postoperative anemia, incisional bleeding. ?Severe preeclampsia: Patient received 1 dose IV labetalol. She is status post 24 hours of magnesium sulfate. Blood pressures well controlled. Patient is a symptomatic. ?Gestational diabetes: Patient was diet controlled during . She did receive 1 dose of Celestone after which glucose was elevated. Appeared to be decreasing at this time. Continue to monitor. Will need 2-hour glucose tolerance test at 6 to 12 weeks . ?Acute blood loss anemia secondary to surgery. Postoperatively hemoglobin was 7.3. Post op day 1 was 7.7. Postop day 2 hemoglobin 7.1. Patient did receive one-time dose 200 mg IV Venofer. Hemoglobin is stable. Patient is asymptomatic without dizziness, shortness of breath, lightheadedness. Vitals are stable. ?Incisional bleeding: Resolved. Incision today clean, dry, intact. Bleeding secondary to exposed skin edge. Plan to likely discharge home this afternoon. Will monitor blood pressures and sugars this morning. Plan for follow up this week for BP check. 2 weeks post op. Has cuff at home. Instructions of when to call discussed, BP>160/110, persistent STERN, visual disturbances, RUQ pain, not feeling well. (3) delivery delivered: (4) Acute postoperative pain:
--- NOTE | 2021-12-25 05:41 | DCINST_ITS ---
Discharge Instructions Diet Discharge Diet: No restrictions Activity Discharge Activity: Return to Normal Activity and May Shower May resume sexual activity in: 4-6 weeks Weight Bearing Status: Weight bearing as tolerated Lifting Restrictions: No greater than 25 pounds Dressing / Incision Call your doctor if your incision/area has: Continuous Slow Oozing, Increased Redness and Swelling at the incision site Call your doctor if you observe: Fever of 101 or Higher, Change in Color, Inability to urinate, Using more than 1 pad per hour, Shortness of breath, Dizziness, Swelling in the ankles, Chest pain and Calf discomfort Remove Dressing in: 1 week Cleanse incision/area with: Soap & Water and Keep Dressing Clean & Dry Follow Up Care Please Follow Up With: Varinder Boss MD When: BP check with RN this week, 2-week post op and 6-week visit Test Results: Test results from this visit will be discussed in further detail at your follow- up appointment, if applicable. Call for persistent headache, Blood pressure >160/110, visual disturbances, RUQ pain. Discharge Plan Admission Admit Date/Time: 12/22/21 16:40 Primary Reason for Your Visit: Section Attending Provider: Varinder Boss Primary Care Provider: Arline Hudson Discharge Orders/Prescriptions Prescriptions: New oxycodone 5 mg tablet 5 mg PO Q6H PRN (Reason: pain (scale score 7-10)) 4 Days Qty: 16 0RF Continued prenat.vits,lulú,jeq-oamy-thsij Tablet 1 tab PO DAILY Referrals / Follow Up: Arline Hudson MD [Primary Care Provider] - Disposition Disposition (needs filled in before D/C Order can be placed): Home, Self Care
--- NOTE | 2021-12-25 06:07 | PCM.DC.SUM ---
Providers Date of Admission: 12/22/21 Primary Care Physician: Dr. Arline Hudson MD Reason For Visit: PRIMARY Diagnosis Discharge Diagnosis (1) Gestational diabetes: Status: Resolved Code(s): O24.419 - Gestational diabetes mellitus in , unspecified control (2) Severe pre-eclampsia: Status: Resolved Code(s): O14.10 - Severe pre-eclampsia, unspecified trimester Plan: Postop day 2 status post primary section for breech position. Complicated by severe preeclampsia, gestational diabetes, postoperative anemia, incisional bleeding. ?Severe preeclampsia: Patient received 1 dose IV labetalol. She is status post 24 hours of magnesium sulfate. Blood pressures well controlled. Patient is asymptomatic. ?Gestational diabetes: Patient was diet controlled during . She did receive 1 dose of Celestone after which glucose was elevated. Appeared to be decreasing at this time. Continue to monitor. Will need 2-hour glucose tolerance test at 6 to 12 weeks . ?Acute blood loss anemia secondary to surgery. Postoperatively hemoglobin was 7.3. Post op day 1 was 7.7. Postop day 2 hemoglobin 7.1. Patient did receive one-time dose 200 mg IV Venofer. Hemoglobin is stable. Patient is asymptomatic without dizziness, shortness of breath, lightheadedness. Vitals are stable. ?Incisional bleeding: Resolved. Incision today clean, dry, intact. Bleeding secondary to exposed skin edge. Plan to likely discharge home this afternoon. Will monitor blood pressures and sugars this morning. Plan for follow up this week for BP check. 2 weeks post op. Has cuff at home. Instructions of when to call discussed, BP>160/110, persistent STERN, visual disturbances, RUQ pain, not feeling well. (3) delivery delivered: Status: Inactive Code(s): O82 - Encounter for delivery without indication (4) Acute postoperative pain: Status: Acute Code(s): G89.18 - Other acute postprocedural pain Medications at Discharge Home Medications oxycodone 5 mg tablet 5 mg PO Q6H PRN pain (scale score 7-10) 4 days #16 tabs 12/22/21 prenat.vits,lulú,qqm-iowv-ubsdo 1 tab PO DAILY 12/22/21 Hospital Course Operations section Summary of Care Provided Hospital Course: Patient admitted to labor and delivery on 12/22/2021 for severe preeclampsia based on elevated blood pressures in the severe range. Patient had breech presentation and had primary section. On postop day 1 patient had incisional oozing that was persistent until postop day 2, resolved with pressure dressing and silver nitrate applied to skin edge. Patient received magnesium sulfate for 24 hours. Blood pressures were well controlled after this was stopped. Not started on any blood pressure medications. Glucose was elevated after Celestone was given, resolved over hospital course. Patient discharged on postop day 2 with follow-up plan for this week in office. Physical Exam Const alert, oriented x3 and no apparent distress HEENT normocephalic Head and Scalp: atraumatic Neck full ROM Resp normal respiratory effort Cardio regular rate GI normal to inspection, nondistended, normoactive bowel sounds GI Narrative: Uterus 2 cm below umbilicus, dressing clean and dry. Pressure dressing removed. Incision clean and dry. Ecchymosis unchanged. No oozing. Scant dry blood on telfa. Back/Spine normal ROM Extremity normal to inspection Extremity Narrative: Minimal pedal edema Neuro no focal motor deficits and no sensory deficits noted Psych mental status grossly normal and affect normal Weight / BMI Weight Weight: 72.1 kg Body Mass Index (BMI) 28.1 ABG / Lab / Microbiology Data Result Diagrams: 12/24/21 06:30 12/24/21 06:30 Laboratory: Laboratory Results - last 24 hr 12/24/21 06:18: POC Glucose 93 12/24/21 06:30: Sodium 137, Potassium 3.9, Chloride 106, Carbon Dioxide 23.0, Anion Gap 8, BUN 9, Creatinine 0.77, Estim Creat Clear Calc 85.16, Est GFR (MDRD) Af Amer 110, Est GFR (MDRD) Non-Af 91, BUN/Creatinine Ratio 11.7, Glucose 94, Calcium 7.2 L, Total Bilirubin 0.10 L, AST 30, ALT 12 L, Alkaline Phosphatase 91, Total Protein 5.8 L, Albumin 2.2 L, Globulin 3.6, Albumin/Globulin Ratio 0.6 L 12/24/21 06:30: WBC 14.1 H, RBC 2.40 L, Hgb 7.1 L, Hct 21.7 L, MCV 90.4, MCH 29.6, MCHC 32.7, RDW Std Deviation 43.9, RDW Coeff of Odilia 13.7, Plt Count 204, MPV 10.3, Immature Gran % (Auto) 1.500 H, Neut % (Auto) 83.7 H, Lymph % (Auto) 7.1 L, Putnam % (Auto) 7.3, Eos % (Auto) 0.1, Baso % (Auto) 0.3, Absolute Neuts (auto) 11.8 H, Absolute Lymphs (auto) 1.00, Nucleated RBC % 0 D/C Instructions Discharge Diet: No restrictions May resume sexual activity in: 4-6 weeks Weight Bearing Status: Weight bearing as tolerated Call your doctor if your incision/area has: Continuous Slow Oozing, Increased Redness and Swelling at the incision site Call your doctor if you observe: Fever of 101 or Higher, Change in Color, Inability to urinate, Using more than 1 pad per hour, Shortness of breath, Dizziness, Swelling in the ankles, Chest pain and Calf discomfort Cleanse incision/area with: Soap & Water and Keep Dressing Clean & Dry Please Follow Up With: Varinder Boss MD When: BP check with RN this week, 2-week post op and 6-week visit Meaningful Use Info Meaningful Use Diagnoses (Choose all that apply): None applicable Discharge Plan Admission Admit Date/Time: 12/22/21 16:40 Primary Reason for Your Visit: Section Attending Provider: Varinder Boss Primary Care Provider: Arline Hudson Instructions Patient Instructions: After a Discharge Orders/Prescriptions Prescriptions: New oxycodone 5 mg tablet 5 mg PO Q6H PRN (Reason: pain (scale score 7-10)) 4 Days Qty: 16 0RF Continued prenat.vits,lulú,ryt-fqjx-rjwdf Tablet 1 tab PO DAILY Referrals / Follow Up: Arline Hudson MD [Primary Care Provider] - Disposition Disposition (needs filled in before D/C Order can be placed): Home, Self Care
[2021-12-25 06:41] LABS: Bedside Glucose 77 mg/dL (74-106)
[2021-12-25 08:30] VITALS: BP 127/81; PULSE 80; RESP 16; TEMP 36.2; O2SAT 100
--- NOTE | 2021-12-25 09:12 | NURSING ---
3 cm area of bruising noted above incision
[2021-12-25] MEDS: Enoxaparin 40 MG/0.4 ML Syringe SC (10:09)
[2021-12-25] MEDS: Senna/Docusate Sodium 1 Tablet PO (10:09)
[2021-12-25] MEDS: Prenatal Vits Tablet 1 TABLET PO (10:09)
[2021-12-25] MEDS: FLU VACC QS2022-23(6MOS UP)/PF 60 MCG/0.5 ML SYRINGE IM (10:10)
[2021-12-25 11:15] VITALS: BP 116/76; PULSE 90; RESP 16; TEMP 36.9; O2SAT 98
[2021-12-25 11:35] LABS: Bedside Glucose 100 mg/dL (74-106)
--- NOTE | 2021-12-29 10:45 | NURSING ---
Louise Chatterjee asked follow up questions at [facility] appt. Pt. reports things are going well with no new s+s. Appreciated staff and felt they did a good job keeping calm during delivery.
== END 2021-12-25 14:00 | disposition home or self-care (01) | DRG 787 ==
LOC: WPOUT 16:41 → WP 16:41
PROVIDERS: Student in an Organized Health Care Education/Training Program; Admitting Provider Obstetrics & Gynecology; PCP Family Medicine; Visit Provider Obstetrics & Gynecology
DX: O14.14 Severe pre-eclampsia complicating childbirth (principal); D62 Acute posthemorrhagic anemia; O60.14X0 Preterm labor third trimester with preterm delivery third trimester, not applicable or unspecified; O24.420 Gestational diabetes mellitus in childbirth, diet controlled; O90.81 Anemia of the puerperium; Z3A.35 35 weeks gestation of pregnancy; Z37.0 Single live birth; O32.1XX0 Maternal care for breech presentation, not applicable or unspecified; Z23 Encounter for immunization
CPT/HCPCS: 59050; 76815; 80053; 82962; 83615; 83735; 85025; 85027; 86850; 86900; 86901; 87081; 87653; 99218; 99406; J1756; J7120; 90686; A4216; G0378; J0702; J2405

== ENCOUNTER → 2023-07-27 | Outpatient (CLI) | payer SELFPAY ==
[2023-07-30 20:08] LABS: Chlamydia By Nucleic Acid AMP Negative (Negative); Gonococcus By Nucleic Acid AMP Negative (Negative)
[2023-08-02 14:09] LABS: HPV APTIMA, High Risk Negative (Negative)
== END | disposition home or self-care (01) ==
LOC: LABSPEC 16:39
PROVIDERS: PCP Family Medicine; Referring Provider Advanced Practice Midwife; Visit Provider Advanced Practice Midwife
DX: Z12.4 Encounter for screening for malignant neoplasm of cervix (principal); Z20.2 Contact with and (suspected) exposure to infections with a predominantly sexual mode of transmission; N93.0 Postcoital and contact bleeding
CPT/HCPCS: 87070; 87205; 87491; 87591; 87624; 88175; G0145

== ENCOUNTER → 2023-07-31 | Outpatient (CLI) | payer SELFPAY ==
--- NOTE | 2023-07-31 13:00 | US_ITS ---
STUDY: ULTRASOUND TRANSVAGINAL CLINICAL: Female, 37 years old. postcoital bleeding TECHNIQUE: Transvaginal COMPARISON: None. FINDINGS: Normal uterine size measuring 8.7 x 5.2 x 3.8 cm in maximal craniocaudal dimension. There are no myometrial masses. Normal endometrial thickness measuring 9 mm. There are no endometrial masses, and there is no fluid in the endometrial cavity. Nabothian cysts of the uterine cervix. Normal right ovary, measuring 3.2 x 2.0 x 1.8 cm. There are multiple follicles without a dominant cyst. Normal blood flow. Normal left ovary, measuring 3.1 x 2.2 x 2.3 cm. There is a 1.4 cm septated cyst. Normal blood flow. There is no free fluid in the pelvis. Polycystic ovary disease: No. US/Transvaginal Non- IMPRESSION: No definite acute or significant abnormality seen. Electronically Signed: Nicola Song MD at 16:08 EDT ,
== END | disposition home or self-care (01) ==
PROVIDERS: PCP Family Medicine; Referring Provider Advanced Practice Midwife; Visit Provider Advanced Practice Midwife
DX: N93.0 Postcoital and contact bleeding (principal)
CPT/HCPCS: 76830

== ENCOUNTER → 2023-11-27 | Outpatient (CLI) | payer SELFPAY ==
[2023-11-27 16:24] LABS: hCG Titer Quant., Serum 2776 mIU/mL (1-3)
== END | disposition home or self-care (01) ==
PROVIDERS: PCP Family Medicine; Referring Provider Obstetrics & Gynecology; Visit Provider Obstetrics & Gynecology
DX: O20.9 Hemorrhage in early pregnancy, unspecified (principal); Z3A.00 Weeks of gestation of pregnancy not specified
CPT/HCPCS: 36415; 84702

== ENCOUNTER → 2023-11-29 | Outpatient (CLI) | payer SELFPAY ==
[2023-11-29 19:42] LABS: hCG Titer Quant., Serum 4734 mIU/mL (1-3)
== END | disposition home or self-care (01) ==
LOC: LAB 17:45
PROVIDERS: PCP Family Medicine; Referring Provider Obstetrics & Gynecology; Visit Provider Obstetrics & Gynecology
DX: O20.9 Hemorrhage in early pregnancy, unspecified (principal); Z3A.00 Weeks of gestation of pregnancy not specified
CPT/HCPCS: 36415; 84702

== ENCOUNTER → 2023-12-05 | Outpatient (CLI) | payer SELFPAY ==
--- NOTE | 2023-12-05 16:55 | US_ITS ---
INDICATION: bleeding in preg EXAMINATION: Ultrasound US OB Transvaginal TECHNIQUE: Transvaginal (for optimal evaluation of the adnexa) pelvic ultrasound was performed. Grayscale, spectral waveform, and color flow Doppler evaluation of the adnexa. COMPARISON: None. LMP: [10/22/2023 Beta-hCG: Unknown FINDINGS: UTERUS: 8.9 x 7.2 x 4.0 cm. Bicornuate configuration. RIGHT OVARY: 2.4 x 2.1 x 1.6 cm. Normal. LEFT OVARY: 2.6 x 1.7 x 1.6 cm. Normal. FREE FLUID: None. INTRAUTERINE GESTATIONAL SAC(s) (size/shape): Twin gestational sacs in the right horn. Mean sac diameter 0.96 cm,. YOLK SAC: Identified POLE: Identified CRL 0.42 cm for baby A, 0.29 cm for baby B. ESTIMATED GESTATION AGE: 6 weeks 2 days for baby A, 6 weeks 1 day for baby B. HEART MOTION: 115 for baby A, 84 for baby B bpm. PLACENTA: Not visualized due to age. SUBCHORIONIC HEMORRHAGE: Small. AMNIOTIC FLUID: Qualitatively normal. 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 Estimated gestational age is 6 weeks 2 days for baby A and 6 weeks 1 day for baby B. IGOR 07/30/2024 for baby A and 07/29/2024 for baby B. bradycardia for baby B. Electronically Signed: Chriss Cazares MD at 21:44 EDT ,
== END | disposition home or self-care (01) ==
LOC: US 16:50
PROVIDERS: PCP Family Medicine; Referring Provider Obstetrics & Gynecology; Visit Provider Obstetrics & Gynecology
DX: O20.9 Hemorrhage in early pregnancy, unspecified (principal); Z3A.00 Weeks of gestation of pregnancy not specified
CPT/HCPCS: 76817

== ENCOUNTER → 2023-12-14 | Outpatient (CLI) | payer SELFPAY ==
--- NOTE | 2023-12-14 11:32 | US_ITS ---
STUDY: FIRST TRIMESTER OBSTETRICAL ULTRASOUND (TWINS) REASON FOR EXAM: Female, 38 years old. LMP: 10/22/2023 Twin preg, bleeding in early preg TECHNIQUE: Transvaginal TECHNICAL QUALITY: Adequate. COMPARISON: 12/05/2023 FINDINGS: There are two demonstrated intrauterine gestational sacs. There is a single identified placenta, without a ?twin peak? sign, indicating a probable monochorionic . Placenta is posterior. The amniotic membrane cannot be visualized. The estimated gestation age (EGA) by LMP is 7 weeks, 4 days. The estimated date of delivery (IGOR) by LMP is 07/28/2024. BABY A The mean sac diameter (MSD) measure 15 mm, indicating an estimated gestational age (EGA) of 6 weeks, 2 days. There is a visualized yolk sac. The yolk sac measures 4 mm. There is visualization of an embryo. The crown-rump length (CRL) measures 8 mm, indicating an estimated gestational age (EGA) of 6 weeks, 6 days. The estimated gestation age (EGA) by US is 6 weeks, 4 days. The estimated date of delivery (IGOR) by US is 08/04/2024. There is demonstrated cardiac activity with a heart rate 91 bpm. BABY B The mean sac diameter (MSD) measure 4 mm, indicating an estimated gestational age (EGA) of 5 weeks, 1 days. There is a visualized yolk sac. The yolk sac measures 1. There is no demonstrated embryo ( pole). s. The estimated gestation age (EGA) by US is 5 weeks, 1 days. The estimated date of delivery (IGOR) by US is 08/14/2024. . MATERNAL ANATOMY The uterus measures 9.5 x 4.5 x 8.2 cm cm. There is no demonstrated uterine fibroid. The cervix is closed. The right ovary measures 3.0 x 1.7 x 2.0 cm. There is no right ovarian cyst. There is no visualized right adnexal mass or complex lesion. The left ovary measures 2.5 x 1.8 x 2.8 cm. There is no left ovarian cyst. There is no visualized left adnexal mass or complex lesion. There is no fluid in the cul de sac. US/Transvaginal w/Preg US IMPRESSION: Early abnormal twin gestation with a dominant gestational sac with multiple yolk sacs and a pole with bradycardia and a involuting second gestational sac with no identifiable pole. Follow-up is recommended. Electronically Signed: Reginald Boland MD at 19:48 EDT Reading Location ID and State: [id number] / [employer] Tel , Service support , Refer to 20 gestation ultrasound Electronically Signed: Reginald Boland MD at 19:50 EDT Reading Location ID and State: [id number] / [employer] Tel , Service support ,
== END | disposition home or self-care (01) ==
PROVIDERS: PCP Family Medicine; Referring Provider Obstetrics & Gynecology; Visit Provider Obstetrics & Gynecology
DX: O30.001 Twin pregnancy, unspecified number of placenta and unspecified number of amniotic sacs, first trimester (principal); O34.01 Maternal care for unspecified congenital malformation of uterus, first trimester; Q51.3 Bicornate uterus; O20.9 Hemorrhage in early pregnancy, unspecified; Z3A.00 Weeks of gestation of pregnancy not specified
CPT/HCPCS: 76817

== ENCOUNTER 2023-12-19 06:03 | Day surgery (SDC) | payer SELFPAY ==
[2023-12-19] VITALS (8 sets, daily range): BP systolic 107–131; BP diastolic 72–85; PULSE 59–87; RESP 16–18; TEMP 36.2–36.7; O2SAT 96–98; BMI 27.0
[2023-12-19] MEDS: Doxycycline 100 MG CAPSULE PO (06:31)
[2023-12-19] MEDS: Lactated Ringers 1,000 ML 15 ML IV (06:31)
[2023-12-19 06:36] LABS: Hematocrit 37.3 % (37-47); Hemoglobin 12.6 g/dL (12.0-15.0); Mean Corp Hgb Conc 33.8 g/dL (32-36); Mean Corpuscular Hgb 29.6 pg (27.0-32.0); Mean Corpuscular Volume 87.6 fL (81-99); Platelet Count 258 K/mm3 (150-450); RBC Distribution Width CV 12.5 % (11.6-14.6); RBC Distribution Width SD 39.8 fl (35.1-43.9); Red Blood Count 4.26 M/mm3 (4.2-5.4); White Blood Count 5.7 K/mm3 (4.4-11.0)
--- NOTE | 2023-12-19 07:07 | PRE.ANES_ITS ---
ASA Classification* ASA Classification ASA Classification: 2 Assessment & Plan Anesthesia* Anesthesia Assessment Anesthesia Assessment: Discussed sedation and/or anesthesia options, risks, benefits, and alternatives with patient/parents/legal guardian/POA. Questions invited. The patient/parents/legal guardian/POA seems to understand and agrees to proceed with anesthesia plan. Reviewed the physical assessment, medical history, allergy history and patient home medications list prior to surgery/procedure/anesthetic and documented any changes. Performed airway and anesthesia risk assessments. Anesthesia Type Anesthesia Type: MAC (see written pre anesthesia record for full assessment) Anesthesia Focused Assessment* Temperature: 98.1 F Pulse Rate: 64 Blood Pressure: 107/72 Respiratory Rate: 16 Pulse Ox: 98 Airway Assessment Mouth opens: >3 cm Mallampati Score: II Focused Labs Anesthesia Preop lab: CBC WBC 5.7 K/mm3 (4.4-11.0) 12/19/23 06:30 RBC 4.26 M/mm3 (4.2-5.4) 12/19/23 06:30 Hgb 12.6 g/dL (12.0-15.0) 12/19/23 06:30 Hct 37.3 % (37-47) 12/19/23 06:30 Plt Count 258 K/mm3 (150-450) 12/19/23 06:30 CHEMISTRY Potassium 3.9 mmol/L (3.5-5.1) 12/24/21 06:30 Sodium 137 mmol/L (136-145) 12/24/21 06:30 Magnesium 7.0 mg/dL (1.6-2.6) H* 12/23/21 18:00 BUN 9 mg/dL (7-18) 12/24/21 06:30 Creatinine 0.77 mg/dL (0.55-1.02) 12/24/21 06:30 Glucose 94 mg/dL (74-106) 12/24/21 06:30 POC Glucose 100 mg/dL (74-106) 12/25/21 11:12 COAG HCG, Quant 4734 mIU/mL (1-3) H 11/29/23 17:48 Tst Clinic Negative 07/27/23 10:03 Pre-Assessment Diagnosis/Proposed Procedure Planned Operative Procedure(s): d&c, suction, anora Anesthesia History Anesthesia History - account classification clerk: Anesthesia History - account classification clerk Hx Hospitalization No 12/18/23 14:57 Any Problems With Anesthesia No 12/18/23 14:57 Cholinesterase deficiency No 12/18/23 14:57 You/Your Family Experience No 12/18/23 14:57 fever (hyperthermia) with Relationship Recent Exposure to Contagious No 12/19/23 06:24 Disease Does patient have nerve No 12/18/23 14:57 stimulator Patient instructed to have device shut off --Does patient have Pacemaker No 12/19/23 06:24 or ICD? When Was Last Pacemaker Check QUESTION #4 FULL TEXT: You/Your Family Experience fever (hyperthermia) with Anesthesia Last Oral Intake Last Oral intake: Last Oral Intake NPO since 20:00 12/19/23 06:24 Meds taken in AM with sips of water? Meds patient instructed to DOXYCYCLINE 12/19/23 06:24 take am of surgery PONV PONV - account classification clerk: PONV - account classification clerk Female Yes 12/18/23 14:57 HX of Motion Sickness No 12/18/23 14:57 HX of N/V After Surgery No 12/18/23 14:57 Non-Smoker Yes 12/18/23 14:57 Duration of Surgery greater No 12/18/23 14:57 than 60 minutes Number of Risk Factors 2 12/18/23 14:57 PONV Score Moderate Risk 12/18/23 14:57 Height & Weight Height & Weight: Anesthesia: Height & Weight Height 5 ft 3 in 12/19/23 06:24 Weight: 69.2 kg 12/19/23 06:24 Body Mass Index (BMI) 27.0 12/19/23 06:24 Respiratory Assessment Respiratory Assessment - account classification clerk: Respiratory Tract Infection Hx - account classification clerk Hx Respiratory Tract Infection No 12/18/23 14:57 STOP Sleep Apnea STOP Sleep Apnea - account classification clerk: STOP Sleep Apnea - account classification clerk Hx Hypertension No 12/18/23 14:57 Hx Sleep Apnea No 12/18/23 14:57 CPAP BIPAP Do you snore loudly (louder No 12/18/23 14:57 than talking or can be heard Do you often feel tired/ No 12/18/23 14:57 fatigued/ sleepy during daytime? Has anyone observed you stop No 12/18/23 14:57 breathing during sleep? STOP Results Negative 12/18/23 14:57 QUESTION #5 FULL TEXT : Do you snore loudly (louder than talking or can be heard through closed doors)? Tobacco Use History Tobacco Use History - account classification clerk: Tobacco Use History - account classification clerk Tobacco Use Smoking Status Never smoker 12/18/23 14:57 Hx Tobacco Use No 12/18/23 14:57 Years Smoking Packs Smoked per Day Smoking Cessation Date was within the last 15 years Hx Smoking Cessation Date Hx Smoking Cessation Counseling Hematologic Medial History Hematologic Hx - account classification clerk: Hematologic Medical Hx - publicity agent Hx of Blood Transfusion No 12/18/23 14:57 Hx of Transfusion in last 3 No 12/18/23 14:57 Months Date of Last Transfusion (if within last 3 months) Ever experience any problems No 12/18/23 14:57 with transfusion(s)? Specify any problems Hx of Preganancy in last 3 N/A 12/18/23 14:57 Months Nurse Filling Out Transfusion NBUCHER 12/18/23 14:57 & Questions: Date: 12/18/23 12/18/23 14:57 Time: 14:58 12/18/23 14:57 Patient unable to answer at this time (ie. confused, unrespo /Reproduction History /Reproductive History - account classification clerk: /Reproductive Hx- account classification clerk Hx Now Yes 12/18/23 14:57 Gestational Age (in weeks): EDC: Hx Hx Para Hx Section SAB No 12/18/23 14:57 Active Medications Active Medications: Current Medications Generic Name Dose Route Start Last Admin Trade Name Erin PRN Reason Stop Dose Admin Doxycycline Monohydrate 100 mg 12/19/23 07:30 12/19/23 06:31 Doxycycline 100 Mg Capsule PO 12/19/23 07:31 100 mg PREOP ONE Administration Lactated Ringer's 1,000 mls @ 15 mls/hr 12/19/23 06:15 12/19/23 06:31 IV 15 mls/hr .Q48H KRISTIE Administration PFSH Medical History Non-smoker delivery delivered Family history of hearing loss at age younger than 7 years HPV (human papilloma virus) infection Pre-eclampsia Gestational diabetes Home Medications ?Medication ?Instructions ?Recorded ?Last Taken ?Type NK 12/18/23 Unknown History Allergy/AdvReac Type Severity Reaction Status Date / Time No Known Allergies Allergy Verified 12/18/23 14:56 Family History Father Hypertension Grandmother Breast cancer, Onset Age: 70 Aunt Breast cancer, Onset Age: 50 Surgical History History of wisdom tooth extraction Hx of section (~2021) Social History household members: family number of children: 1 current occupational status: employed current occupation: [employer] current occupational exposures/hazards: No sexually active: Yes Smoking Status: Never smoker alcohol intake: current seatbelt use: always do you feel safe at home: Yes additional social history: [employer] - 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
--- NOTE | 2023-12-19 07:09 | HP.PCM_ITS ---
HPI - General HPI Narrative LOULOU NOGUERA, is a 38 F @ 7 weeks present with twin loss, irregular gestational sac seens, recommend genetic testing due to the irregularity of appearance to rule out molar pregnancies. she denies bleeding or cramping, no discharge at this time. she was seen by MFM yesterday and D and C recommended with genetic testing. REPLACED BY [facility] Medical History Non-smoker delivery delivered Family history of hearing loss at age younger than 7 years HPV (human papilloma virus) infection Pre-eclampsia Gestational diabetes Home Medications ?Medication ?Instructions ?Recorded ?Last Taken ?Type NK 12/18/23 Unknown History Allergy/AdvReac Type Severity Reaction Status Date / Time No Known Allergies Allergy Verified 12/18/23 14:56 Family History Father Hypertension Grandmother Breast cancer, Onset Age: 70 Aunt Breast cancer, Onset Age: 50 Surgical History History of wisdom tooth extraction Hx of section (~2021) Social History household members: family number of children: 1 current occupational status: employed current occupation: [employer] current occupational exposures/hazards: No sexually active: Yes Smoking Status: Never smoker alcohol intake: current seatbelt use: always do you feel safe at home: Yes additional social history: [employer] - 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, [employer] ROS Constitutional Constitutional: Reports systems reviewed and no addt'l complaints, except as documented; Denies as per HPI, change in weight, fatigue, fever(s), malaise, weakness or other Eyes Eyes: Reports systems reviewed and no addt'l complaints, except as documented; Denies as per HPI, change in vision or other ENT HEENT: Reports systems reviewed and no addt'l complaints, except as documented Respiratory/Chest Respiratory/Chest: Reports systems reviewed and no addt'l complaints, except as documented Gastrointestinal Gastrointestinal: Reports systems reviewed and no addt'l complaints, except as documented and as per HPI Genitourinary Genitourinary: Reports as per HPI Musculoskeletal Musculoskeletal: Reports systems reviewed and no addt'l complaints, except as documented Neurologic Neurologic: Reports systems reviewed and no addt'l complaints, except as documented Psychiatric Psychiatric: Reports systems reviewed and no addt'l complaints, except as documented Endocrine Endocrinology: Reports systems reviewed and no addt'l complaints, except as documented Hematologic/Lymphatic Hematologic/Lymphatic: Reports systems reviewed and no addt'l complaints, except as documented Vital Signs Vital Signs Vital Signs: 12/19/23 06:24 12/19/23 06:24 12/19/23 07:08 Temperature 98.1 F 98.1 F Temperature Source Temporal Pulse Rate 64 64 Respiratory Rate 16 16 Respiratory Pattern Normal Blood Pressure 107/72 107/72 Blood Pressure Mean 83 Blood Pressure Source Monitor Blood Pressure Position Semi-Fowlers Blood Pressure Location Right Arm Pulse Ox 98 98 Oxygen Delivery Method Room Air Weight Weight: 152 lb 8.958 oz Body Mass Index (BMI) 27.0 Physical Exam Const alert, oriented x3 and no apparent distress HEENT normocephalic Head and Scalp: atraumatic Eyes EOMs intact bilaterally and conjunctivae normal Neck full ROM, no lymphadenopathy, supple and thyroid normal General: trachea midline Resp normal respiratory effort Cardio regular rhythm GI soft to palpation and non-distended Extremity normal to inspection Skin no rashes or lesions noted Neuro moves all extremities Psych mental status grossly normal Results Lab / Micro Data 12/19/23 06:30 Labs: Laboratory Results - last 24 hr 12/19/23 06:30: WBC 5.7, RBC 4.26, Hgb 12.6, Hct 37.3, MCV 87.6, MCH 29.6, MCHC 33.8, RDW Std Deviation 39.8, RDW Coeff of Odilia 12.5, Plt Count 258, MPV 10.0 Assessment & Plan Assessment/Plan (1) Missed : PLAN: Plan After discussing the patient's diagnosis and treatment plan options, patient wishes to proceed with surgical management. I have discussed with the patient the risks, benefits, and alternatives of the procedure which include but are not limited to risks of anesthesia, bleeding, infection, possible damage to bowel, bladder, or surrounding vasculature which could lead to additional surgery to evaluate any complications. Patient agrees to procedure and wishes to proceed. ACOG/uptodate references given for additional information regarding procedure. Charges/Coding Visit Charges Office Visits / Consults: [id number] OV L4 Est 30min
--- NOTE | 2023-12-19 07:22 | DCINST_ITS ---
Discharge Instructions Diet Discharge Diet: No restrictions Activity Discharge Activity: Return to Normal Activity, May Shower and May Take a Tub Bath (after 1 week) May resume sexual activity in: 1-2 weeks Weight Bearing Status: Weight bearing as tolerated Lifting Restrictions: none Dressing / Incision Call your doctor if you observe: Fever of 101 or Higher, Using more than 1 pad per hour, Shortness of breath and Uncontrolled pain Follow Up Care Please Follow Up With: Corina Garcia MD When: Call [phone] to schedule appointment. Test Results: Test results from this visit will be discussed in further detail at your follow- up appointment, if applicable. Discharge Plan Admission Attending Provider: Corina Garcia Primary Care Provider: Arline Hudson Instructions Print Language: Kinyarwanda Discharge Orders/Prescriptions Prescriptions: No Action NK Referrals / Follow Up: Arline Hudson MD [Primary Care Provider] - Disposition Disposition (needs filled in before D/C Order can be placed): Home, Self Care
--- NOTE | 2023-12-19 07:22 | PCM.OPRPT ---
Problems Associated Problem List Diagnoses (1) Missed : (2) Twin gestation in first trimester: Report of Operation Date of Procedure: 12/19/23 Pre-Operative Diagnosis: see problem list Post-Operative Diagnosis: same Surgery/Procedure Performed:: Suction dilation and curettage Description of Surgical Findings:: no FHT present, Nonviable 7 weeks Surgeon: Corina Garcia structural analyst: None Type of Anesthesia: Local MAC Special Medications: none Specimen's removed: POC Drains: none Estimated Blood Loss (mL): 100 Fluids Replaced: crystalloid Description of Procedure: ANORD TESTING. Patient was taken to the operating room and placed under MAC local anesthesia. She was prepped and draped in the normal sterile fashion the dorsal lithotomy position. Bladder was drained of clear urine and anterior lip of the cervix was grasped and the uterus sounded to 10. Cervix was progressively dilated to allow passage of a 10MM suction curette. Progressive passes were made removing the retained products of conception without complication. Sharp curettage confirmed complete removal of the retained products. All instruments were removed from the vagina and excellent hemostasis was noted and the patient was taken to recovery in stable condition. Grafts/Implants Used: none Procedure Start Time: 07:35 Procedure Stop Time: 07:46 Complications none Admit VTE Documentation VTE Present on Admission: No VTE Mechan Device Prophylaxis: SCD's Procedures Urinary/Genital 52xxx-59xxx: 55554 Surg Trtmt missed Ab, 1TM
--- NOTE | 2023-12-19 07:30 | POC_PTH ---
PATIENT: LOULOU NOGUERA (MINDY) LOC: [facility] [place]#:[id number] AGE/SX: 38/F ROOM: RE12/19/[address]: Dr. Corina Garcia MD : 1985 BED: DIS: 12/19/2023 SPEC #: [id number] RECD: 12/19/23 08:09 STATUS: JUAN SMALLWOODSage #: [id number] JEAN: 12/19/23 07:[address]: Corina Garcia DEPT: SURGICAL PATHOLOGY RECD BY: Faby Lopez ENTERED: 12/19/23 10:19 SP TYPE: PROD CONC OTHR DR: Dr. Arline Hudson MD Tissues: Product of conception, NOS Procedures: Surgery Specimen Level IV HEADER OPERATION: D&C, suction, Anora testing PRE-OP DIAGNOSIS: Missed TISSUE SUBMITTED: Products of conception sent for Anora testing MICROSCOPIC DIAGNOSIS Endometrium, curettage: Decidua, immature chorionic villi and hypersecretory endometrium (products of conception), clinically missed . See comment. AM: 12/20/2023 COMMENT Hydropic villi or changes of molar are not seen. Clinical correlation is suggested. Results of Anora studies will be reported as an addendum. Case has been reviewed in consultation with Dr. Kulkarni who concurs with the above diagnosis. IDC:[id number] MICROSCOPIC DESCRIPTION Slides are reviewed. GROSS DESCRIPTION Received without fixative is one container labeled with the patient's name and designated Products of conception. The specimen consists of multiple fragments of pink hemorrhagic soft tissue measuring in aggregate 5.0 x 5.0 x 1.0cm. No tissue is identified. Portion of the specimen is submitted for Anora studies. [employer] tissue is submitted in three cassettes. . 12/19/2023 The rest of this specimen is submitted in six more cassettes (cassettes 4-9). [facility] 12/20/2023 TC:5 CPT:[id number]
[2023-12-19] MEDS: Lidocaine 1% (20 ml mdv) 20 ML Vial (07:35)
[2023-12-19] MEDS: miSOPROStol 200 MCG Tablet (07:54)
--- NOTE | 2023-12-19 08:06 | PCM.POST.ANE ---
Anesthesia: Postop Eval I Current Vital Signs Temperature: 97.1 F Pulse Rate: 87 Blood Pressure: 125/75 Respiratory Rate: 18 Pulse Ox: 96 Oxygen Delivery Method: Room Air Assessment Airway patent: Yes Spontaneous unlabored respirations: Yes nausea: No Vomiting: No Anesthesia Complication: No Fluid Hydration Crystalloid volume administer (ml): 600 Total IV fluid infused: 600 Progress Note Anesthesia document: Postop Eval 1 completed: Yes
--- NOTE | 2023-12-19 08:14 | POSTOPAN2_ITS ---
Anesthesia Postop Eval I Sum Postop Eval Completion status Anesthesia document: Postop Eval 1 completed: Yes Anesthesia Postop Eval I Summary Anesthesia Postop Eval I Summary: Anesthesia Postop Eval I: Assessment Summary Airway patent Yes 12/19/23 08:07 WIND OPERATIONS SUPERVISOR.[email or web address] Spontaneous unlabored Yes 12/19/23 08:07 WIND OPERATIONS SUPERVISOR.CSIR respirations Mental status nausea No 12/19/23 08:07 WIND OPERATIONS SUPERVISOR.CSIR Vomiting No 12/19/23 08:07 WIND OPERATIONS SUPERVISOR.CSIR Anesthesia Postop Eval I: Fluid Summary Crystalloid volume administer 600 12/19/23 08:07 WIND OPERATIONS SUPERVISOR.CSIR (ml) Colloids volume administered ( ml) Blood Product volume administered (ml) Total IV fluid infused 600 12/19/23 08:07 WIND OPERATIONS SUPERVISOR.CSIR Anesthesia Postop Eval I: Summary Notes Anesthesia Complication No 12/19/23 08:07 WIND OPERATIONS SUPERVISOR.CSIR Anesthesia Complication Comment: Post-operative progress note Anesthesia: Postop Eval II Evaluation Mental status: Awake Pain Level: 0 nausea: No Vomiting: No
--- NOTE | 2023-12-19 08:14 | PCM.POSTANE2 ---
Anesthesia Postop Eval I Sum Postop Eval Completion status Anesthesia document: Postop Eval 1 completed: Yes Anesthesia Postop Eval I Summary Anesthesia Postop Eval I Summary: Anesthesia Postop Eval I: Assessment Summary Airway patent Yes 12/19/23 08:07 ANALYTICS ANALYST.CSIR Spontaneous unlabored Yes 12/19/23 08:07 ANALYTICS ANALYST.CSIR respirations Mental status nausea No 12/19/23 08:07 ANALYTICS ANALYST.CSIR Vomiting No 12/19/23 08:07 ANALYTICS ANALYST.CSIR Anesthesia Postop Eval I: Fluid Summary Crystalloid volume administer 600 12/19/23 08:07 ANALYTICS ANALYST.CSIR (ml) Colloids volume administered ( ml) Blood Product volume administered (ml) Total IV fluid infused 600 12/19/23 08:07 ANALYTICS ANALYST.CSIR Anesthesia Postop Eval I: Summary Notes Anesthesia Complication No 12/19/23 08:07 ANALYTICS ANALYST.CSIR Anesthesia Complication Comment: Post-operative progress note Anesthesia: Postop Eval II Evaluation Mental status: Awake Pain Level: 0 nausea: No Vomiting: No
[2023-12-25 07:59] LABS: Pathology Specimen OB SEE PATHOLOGY REPORT
== END 2023-12-19 08:55 | disposition home or self-care (01) ==
LOC: SDC 06:04 → AC 06:05
PROVIDERS: PCP Family Medicine; Referring Provider Obstetrics & Gynecology; Visit Provider Obstetrics & Gynecology
PROC: (CPT 59820; principal; 2023-12-19 07:15)
DX: O02.1 Missed abortion (principal); O34.219 Maternal care for unspecified type scar from previous cesarean delivery; O30.001 Twin pregnancy, unspecified number of placenta and unspecified number of amniotic sacs, first trimester
CPT/HCPCS: 59820; 01965; 85027; 86850; 86900; 86901; 88305; J7120; J2405

== ENCOUNTER → 2024-12-15 | Outpatient (CLI) | payer SELFPAY ==
[2024-12-15 14:42] LABS: Hematocrit 38.2 % (37-47); Hemoglobin 13.2 g/dL (12.0-15.0); Immature Granulocytes Count 0.040 X10^3/uL (0.0-0.0); Mean Corp Hgb Conc 34.6 g/dL (32-36); Mean Corpuscular Volume 86.2 fL (81-99); Mean Platelet Vol. 10.5 fl (6.2-12.0); NRBC Flagged by Analyzer 0 % (0-5); Platelet Count 286 K/mm3 (150-450); RBC Distribution Width CV 12.9 % (11.6-14.6); RBC Distribution Width SD 40.2 fl (35.1-43.9); Red Blood Count 4.43 M/mm3 (4.2-5.4); White Blood Count 8.1 K/mm3 (4.4-11.0)
[2024-12-15 15:48] LABS: Creatinine, Urine (random) 12.60 mg/dL (28.00-217.00); Protein, Urine (Random) < 6.0 mg/dL (0.0-12.0); Protein:Creat Ratio UNABLE TO CALCULATE mg/g CRE (0-200)
[2024-12-15 16:22] LABS: AST(SGOT) 17 U/L (<=31); Alanine Aminotransfer ALT/SGPT 12 U/L (<=34); Albumin, Serum 4.2 g/dL (3.5-5.0); Alkaline Phosphatase 71 U/L (35-104); Anion Gap 15 (5-15); BUN 14 mg/dL (4-19); BUN/Creat Ratio 22.8 RATIO (10-20); Calcium,Total 9.9 mg/dL (7.6-11.0); Carbon Dioxide 19.9 mmol/L (21.0-32.0); Chloride 101 mmol/L (98-108); Globulin 2.8 g/dL (2.2-4.2); Glucose 80 mg/dL (70-99); HIV Nonreactive (Nonreactive); Hepatitis B Surface Antigen Nonreactive (Nonreactive); Hepatitis C Antibody Nonreactive (Nonreactive); Potassium 4.2 mmol/L (3.3-5.1); Syphilis Antibodies Nonreactive (Nonreactive)
[2024-12-18 11:08] LABS: Chlamydia By Nucleic Acid AMP Negative (Negative); Gonococcus By Nucleic Acid AMP Negative (Negative)
== END | disposition home or self-care (01) ==
LOC: BWCLAB 14:13
PROVIDERS: PCP Family Medicine; Referring Provider Obstetrics & Gynecology; Visit Provider Obstetrics & Gynecology
DX: O09.299 Supervision of pregnancy with other poor reproductive or obstetric history, unspecified trimester (principal); Z3A.00 Weeks of gestation of pregnancy not specified; Z86.32 Personal history of gestational diabetes
CPT/HCPCS: 36415; 80053; 82570; 83036; 84156; 85025; 86703; 86762; 86780; 86803; 86850; 86900; 86901; 87086; 87340; 87491; 87591